=== PATIENT | male | born 1990 | race Hispanic/Latino ===

== ENCOUNTER 2019-02-23 18:34 | Emergency (ER) | payer OTHER, BC ==
[2019-02-23 18:55] VITALS: O2SAT 100
--- NOTE | 2019-02-23 21:41 | ED PDOC ---
HPI: Male Pain Time Seen by Provider: 02/23/19 18:58 Chief Complaint (Nursing): Groin Pain Chief Complaint (Provider): LEFT testicular pain History Per: Patient History/Exam Limitations: no limitations Onset/Duration Of Symptoms: Days (5), Gradual Current Symptoms Are (Timing): Still Present Severity: Moderate Quality Of Discomfort: Aching Associated Symptoms: denies: Fever, Chills, Nausea, Vomiting, Diarrhea, Constipation, Urinary Symptoms, Other (penile discharge, lesions or sexual partner) Alleviating Factors: None Additional Complaint(s): Seen at an urgent care center today and advised to go to ER. PMD None Past Medical History Reviewed: Historical Data, Nursing Documentation, Vital Signs Vital Signs: Last Vital Signs Temp 98.0 F 02/23/19 18:52 Pulse 69 02/23/19 18:52 Resp 16 02/23/19 18:52 BP 133/71 02/23/19 18:52 Pulse Ox 100 02/23/19 18:52 - Medical History PMH: No Chronic Diseases - Surgical History Surgical History: Tonsillectomy - Family History Family History: States: No Known Family Hx - Social History Current smoker - smoking cessation education provided: No Alcohol: Social Drugs: Cannabis - Allergies Allergies/Adverse Reactions: Allergies Allergy/AdvReac Type Severity Reaction Status Date / Time No Known Allergies Allergy Verified 02/23/19 18:52 Review of Systems ROS Statement: Except As Marked, All Systems Reviewed And Found Negative (and as per HPI) Gastrointestinal: Negative for: Nausea, Vomiting, Abdominal Pain Genitourinary Male: Positive for: Scrotal Pain. Negative for: Dysuria, Frequency, Penile Discharge, Penile Pain Physical Exam - Reviewed Nursing Documentation Reviewed: Yes Vital Signs Reviewed: Yes - Physical Exam Appears: Positive for: Non-toxic, No Acute Distress Head Exam: Positive for: ATRAUMATIC, NORMOCEPHALIC Gastrointestinal/Abdominal: Positive for: Soft. Negative for: Tenderness, Mass, Distended, Guarding Male Genital Exam: Positive for: normal genitalia, no hernia (palpable), testicular tenderness (L). Negative for: inguinal tenderness, testicular tenderness (R), urethral discharge - ECG O2 Sat by Pulse Oximetry: 100 - Progress ED Course And Treament: Name: JACQUELINE ESPANA Exam Date: Feb 23, 2019 8:31:35 PM EDT Modality Type: SD\US\MI Description: US - SCROTUM AND CONTENTS Gender: M Laterality: Not applicable : 88 Referring Physician: Rahel Mccarthy History Left testicular pain. Technique Realtime sonography through the scrotum with color and Doppler flow. Comparison None Available. Findings Right Testicle Measures 5.8 x 2.8 x 3.5 cm. Normal echotexture and flow. Right Epididymis Epididymal head measures 1.2 x 0.8 x 0.7 cm. Grossly unremarkable appearance w ith normal flow. Left Testicle Measures 5.5 x 2.5 x 3.6 cm. Normal echotexture and flow. Left Epididymis Epididymal head measures 1.3 x 0.7 x 0.8 cm. Grossly unremarkable appearance with normal flow. Hydrocele Small right hydrocele. Varicocele None. Other Findings None. Impression Small right hydrocele. Otherwise the study is unremarkable. Electronically signed on Feb 23, 2019 9:21:20 PM EDT by: Christopher Sr M.D., GLENDA Certified By [facility] [employer] [facility] Fellowship Trained MRI and CT Specialist Disposition - Clinical Impression Clinical Impression: Groin strain - Disposition Disposition: Routine/Home Disposition Time: 21:40 Condition: STABLE Instructions: Groin Strain (DC) Disposition Clinical Impression: Groin strain Disposition Time: 21:40 Condition: STABLE Instructions: Groin Strain (DC)
[2019-02-23 22:15] VITALS: BP 126/60; PULSE 68; RESP 18; TEMP 98.1
[2019-02-23 22:24] LABS: SQUAMOUS EPITHIAL < 1 /hpf (0-5); URINE BACTERIA RARE (<OCC); URINE BILIRUBIN NEGATIVE (NEGATIVE); URINE BLOOD NEGATIVE (NEGATIVE); URINE CLARITY SLIGHTY-CLOUDY (Clear); URINE COLOR YELLOW (YELLOW); URINE GLUCOSE (UA) NEG (NEGATIVE); URINE LEUKOCYTE ESTERASE NEG Leu/uL (Negative); URINE PROTEIN NEGATIVE (NEGATIVE); URINE UROBILINOGEN 0.2-1.0 mg/dL (0.2-1.0)
--- NOTE | 2019-02-24 12:43 | US ---
Date of service: 02/23/2019 HISTORY: LEFT scrotal pain TECHNIQUE: Realtime sonography through the scrotum with color and doppler flow. COMPARISON: None Available. FINDINGS: RIGHT TESTICLE: Measures 5.8 x 2.8 x 3.5 cm. Normal echotexture and flow. RIGHT EPIDIDYMIS: Epididymal head measures 1.2 x 0.8 x 0.7 cm. Grossly unremarkable appearance with normal flow. LEFT TESTICLE: Measures 5.5 x 2.5 x 3.6 cm. Normal echotexture and flow. LEFT EPIDIDYMIS: Epididymal head measures 1.3 x 0.7 x 0.8 cm. Grossly unremarkable appearance with normal flow. HYDROCELE: Small right-sided hydrocele VARICOCELE: None. OTHER FINDINGS: None. IMPRESSION: Small right-sided hydrocele. Both testicles exhibit arterial flow.
== END 2019-02-23 22:10 | disposition home or self-care (01) ==
LOC: H.ER 18:34
DX: S39.011A Strain of muscle, fascia and tendon of abdomen, initial encounter (principal); X50.9XXA Other and unspecified overexertion or strenuous movements or postures, initial encounter; Y99.0 Civilian activity done for income or pay; N43.3 Hydrocele, unspecified